=== PATIENT | male | born 1975 | race Two or more races ===

== ENCOUNTER 2016-11-12 17:11 | Observation (INO) | payer OTHER ==
[~2016-11-12] VITALS: Ht 165.1 cm; Wt 65.3 kg
[2016-11-12 17:41] VITALS: BP 145/95
[2016-11-12] MEDS ORDERED: ALBUTEROL2.5 MG/3 M INH (17:57)
[2016-11-12] MEDS ORDERED: MULTI-DELYN237 ML GT (17:57)
[2016-11-12] MEDS ORDERED: VITAMIN C500 M1 ORAL (17:57)
[2016-11-12] MEDS ORDERED: ARTIFICIAL TEAR15 ML BOTH EYES (17:57)
[2016-11-12] MEDS ORDERED: HYDROCODON-ACE1 EA15 ORAL (17:57)
[2016-11-12] MEDS ORDERED: ACETAMINOP160 MG/5 M ORAL (17:57)
[2016-11-12] MEDS ORDERED: IPRATROPIU0.2 MG/1 M HHN (17:57)
[2016-11-12] MEDS ORDERED: LORAZEPAM2 MG ORAL (17:57)
[2016-11-12] MEDS ORDERED: ZINC SULFATE220 M1 GT (17:57)
[2016-11-12] MEDS ORDERED: ANASEPT TP (17:57)
[2016-11-12] MEDS ORDERED: SEROQUEL100 MG ORAL (17:57)
[2016-11-12] MEDS ORDERED: OXYBUTYNIN CHLOR5 M1 ORAL (17:57)
[2016-11-12] MEDS ORDERED: CYMBALTA60 MG ORAL (17:57)
[2016-11-12] MEDS ORDERED: GABAPENTIN300 MG GT (17:57)
[2016-11-12] MEDS ORDERED: FAMOTIDINE20 MG GT (17:57)
[2016-11-12] MEDS ORDERED: MILK OF MA400 MG/51 ORAL (17:57)
[2016-11-12 18:01] LABS: APPEARANCE,URINE SLIGHTLY CLOUDY; KETONES,URINE 2+ (NEGATIVE); LEUKOCYTE ESTERASE ,URINE 3+ (NEGATIVE); MEAN CORPUSCULAR HEMOGLOBIN 29.3 PG (27.0-31.0); MEAN CORPUSCULAR HGB CONC 33.1 G/DL (32.0-36.0); MEAN CORPUSCULAR VOLUME 89 FL (80-99); MEAN PLATELET VOLUME 5.4 FL (6.5-10.1); NITRITE,URINE POSITIVE (NEGATIVE); PH,URINE 6 (4.5-8.0); PLATELET COUNT 220 K/UL (150-450); PROTEIN,URINE 4+ (NEGATIVE); RED BLOOD COUNT 2.41 M/UL (4.70-6.10); RED CELL DISTRIBUTION WIDTH 14.2 % (11.6-14.8); UROBILINOGEN,URINE 1 MG/DL (0.0-1.0); WHITE BLOOD COUNT 10.9 K/UL (4.8-10.8)
[2016-11-12 18:06] LABS: INR 1.1 (0.9-1.1); PROTHROMBIN TIME 11.4 SEC (9.30-11.50)
[2016-11-12 18:11] LABS: ALBUMIN/GLOBULIN RATIO 0.4 (1.0-2.7); CALCIUM 7.4 mg/dL (8.6-10.2); CREATININE 1.5 mg/dL (0.7-1.2); GLOMERULAR FILTRATION RATE 51.1 mL/min (>60); POTASSIUM 4.2 mEQ/L (3.4-4.9); TOTAL PROTEIN 6.7 g/dL (6.6-8.7)
[2016-11-12 18:16] LABS: AMORPHOUS SEDIMENT,UR FEW /LPF; BACTERIA,URINE MANY /HPF; RBC,URINE 30-40 /HPF (0 - 0); WBC,URINE 20-30 /HPF (0 - 0); YEAST,URINE FEW /HPF
--- NOTE | 2016-11-12 18:27 | Emergency Room Report ---
History of Present Illness General Chief Complaint: General Complaint Source: Patient, EMS Present Illness HPI Patient is a 41-year-old male [facility]. The patient had prior history of the tracheostomy dependence. Patient had been having difficulty with oral feeding. Patient had gradual onset of symptoms. He reports having some abdominal pain as well as bilateral shoulder pain. The patient stated that he had prior history of abdominal surgeries and previous G-tube placement. The patient was noted to have a colostomy present. Allergies: Coded Allergies: AMOXICILLIN (Verified Allergy, Unknown, 11/12/16) BACLOFEN (Verified Allergy, Unknown, 11/12/16) Patient History Past Medical History: see triage record Reviewed Nursing Documentation: PMH: Agreed, PSxH: Agreed Nursing Documentation-PMH Past Medical History: No History, Except For Hx Asthma: No - TRACH Hx Gastrointestinal Problems: Yes - COLOSTOMY Review of Systems All Other Systems: limited - by poor historian Physical Exam Vital Signs Date Time Temp Pulse Resp B/P Pulse Ox O2 Delivery O2 Flow Rate FiO2 11/12/16 17:00 98.4 113 22 162/96 94 Room Air 11/12/16 17:41 4.0 Sp02 EP Interpretation: reviewed, normal General Appearance: normal inspection, well appearing, no apparent distress, alert, GCS 15 Head: atraumatic ENT: normal ENT inspection, hearing grossly normal, normal voice Neck: normal inspection, full range of motion, supple, no bony tend Respiratory: normal inspection, normal breath sounds, no retraction, no wheezing Cardiovascular #1: regular rate, rhythm, no edema Gastrointestinal: normal inspection, normal bowel sounds, non tender, soft, no guarding, no hernia Genitourinary: no CVA tenderness Musculoskeletal: normal inspection, back normal, normal range of motion Neurologic: normal inspection, alert, oriented x3, responsive, postal service clerk III-XII nml as tested, speech normal Psychiatric: normal inspection, judgement/insight normal, mood/affect normal Skin: normal inspection, normal color, no rash Medical Decision Making Diagnostic Impression: Primary Impression: Abdominal pain Additional Impressions: Urinary tract infection Anemia Failure to thrive ER Course Patient presented for generalized weakness. Differential diagnosis included was not limited to anemia, urinary tract infection, electrolyte abnormality, hypothyroidism, myocardial infarction, myasthenia gravis, dehydration, among others. Because of complexity of patient's case laboratory testing and imaging studies were ordered. Laboratory tests showed anemia with hemoglobin of 7.1. the patient was also noted to have some evidence of urinary tract infection. The patient was given IV Pepcid for abdominal pain. The patient was started on IV antibiotics to urinary tract infection.I discussed the patient with O physician's who did not feel the patient was stable for transfer. The patient was noted to have capitated physician from [facility] group Dr. Oneal. Labs Test 11/12/16 17:37 White Blood Count 10.9 K/UL (4.8-10.8) Red Blood Count 2.41 M/UL (4.70-6.10) Hemoglobin 7.1 G/DL (14.2-18.0) Hematocrit 21.3 % (42.0-52.0) Mean Corpuscular Volume 89 FL (80-99) Mean Corpuscular Hemoglobin 29.3 PG (27.0-31.0) Mean Corpuscular Hemoglobin Concent 33.1 G/DL (32.0-36.0) Red Cell Distribution Width 14.2 % (11.6-14.8) Platelet Count 220 K/UL (150-450) Mean Platelet Volume 5.4 FL (6.5-10.1) Neutrophils (%) (Auto) % (45.0-75.0) Lymphocytes (%) (Auto) % (20.0-45.0) Monocytes (%) (Auto) % (1.0-10.0) Eosinophils (%) (Auto) % (0.0-3.0) Basophils (%) (Auto) % (0.0-2.0) Prothrombin Time 11.4 SEC (9.30-11.50) Prothromb Time International Ratio 1.1 (0.9-1.1) Activated Partial Thromboplast Time 31 SEC (23-33) Urine Color Brown Urine Appearance Slightly cloudy Urine pH 6 (4.5-8.0) Urine Specific [place] 1.010 (1.005-1.035) Urine Protein 4+ (NEGATIVE) Urine Glucose (UA) Negative (NEGATIVE) Urine Ketones 2+ (NEGATIVE) Urine Occult Blood 5+ (NEGATIVE) Urine Nitrite Positive (NEGATIVE) Urine Bilirubin Negative (NEGATIVE) Urine Urobilinogen 1 MG/DL (0.0-1.0) Urine Leukocyte Esterase 3+ (NEGATIVE) Urine RBC 30-40 /HPF (0 - 0) Urine WBC 20-30 /HPF (0 - 0) Urine Squamous Epithelial Cells None /LPF (NONE/OCC) Urine Amorphous Sediment Few /LPF (NONE) Urine Bacteria Many /HPF (NONE) Urine Yeast Few /HPF (NONE) Sodium Level 145 mEQ/L (135-145) Potassium Level 4.2 mEQ/L (3.4-4.9) Chloride Level 107 mEQ/L (98-107) Carbon Dioxide Level 26 mEQ/L (20-30) Anion Gap 12 (5-15) Blood Urea Nitrogen 22 mg/dL (7-23) Creatinine 1.5 mg/dL (0.7-1.2) Estimat Glomerular Filtration Rate 51.1 mL/min (>60) Glucose Level 95 mg/dL (74-106) Calcium Level 7.4 mg/dL (8.6-10.2) Total Bilirubin 0.3 mg/dL (0.0-1.2) Aspartate Amino Transf (AST/SGOT) 8 U/L (5-40) Alanine Aminotransferase (ALT/SGPT) 5 U/L (3-41) Alkaline Phosphatase 83 U/L (40-129) Total Protein 6.7 g/dL (6.6-8.7) Albumin 2.0 g/dL (3.5-5.2) Globulin 4.7 g/dL Albumin/Globulin Ratio 0.4 (1.0-2.7) EKG Diagnostic Results Rate: tachycardiac - 130 Rhythm: NSR ST Segments: no acute changes Rhythm Strip Diag. Results EP Interpretation: yes Rhythm: NSR, no PVC's, no ectopy Last Vital Signs Date Time Temp Pulse Resp B/P Pulse Ox O2 Delivery O2 Flow Rate FiO2 11/12/16 17:41 98.9 93 30 145/95 100 Trach Collar 4.0 Status: unchanged Disposition: PLACE IN OBSERVATION Condition: Serious Referrals: PO MURPHY (PCP) Lucas Bennett Nov 12, 2016 18:27
[2016-11-12] MEDS ORDERED: Morphine Sulfate 4mg/ml Inj IVP ONE (18:30)
[2016-11-12] MEDS ORDERED: Famotidine 20 MG/ 2ML VIAL IVP ONE (18:30)
[2016-11-12 18:47] LABS: ANISOCYTOSIS 1+; BAND NEUTROPHILS % (MANUAL) 1 % (0-8); EOSINOPHILS % (MANUAL) 2 % (0-3); HYPOCHROMASIA 1+; LYMPHOCYTES % (MANUAL) 13 % (20-45); NEUTROPHILS % (MANUAL) 76 % (45-75); TOTAL CELLS COUNTED 100
[2016-11-12 18:48] LABS: BASOPHILS % (MANUAL) 0 % (0-2); PLATELET ESTIMATE ADEQUATE; PLATELET MORPHOLOGY NORMAL
[2016-11-12 19:00] VITALS: BP 124/85
[2016-11-12 21:00] VITALS: BP 147/98
[2016-11-12 23:00] VITALS: BP 153/102
[2016-11-13] MEDS ORDERED: Morphine Sulfate 4mg/ml Inj IM ONE (00:30)
[2016-11-13 00:45] VITALS: BP 137/95
[2016-11-13] MEDS ORDERED: Albuterol 90mcg Inhaler 8gm INH PRN (00:45)
[2016-11-13] MEDS ORDERED: Morphine Sulfate 4mg/ml Inj IVP ONE (00:45)
[2016-11-13] MEDS ORDERED: LORazepam 1mg tab ORAL PRN (00:45)
[2016-11-13 03:30] VITALS: BP 98/69
[2016-11-13] MEDS ORDERED: Morphine Sulfate 2mg/ml Inj IVP PRN (04:30)
--- NOTE | 2016-11-13 04:33 | Wound Care Consultation ---
Wound Assessment Wound Assessment #1: Wound Number: #1 Wound Present on Admission: Yes New Wound: No Status Change of Wound: No Wound Location Body Site Modif: right Wound Location Body Site: trochanter Wound Type: pressure ulcer Justin Test: Does not Justin Pressure Ulcer Stage: III Wound Thickness: Full Thickness Wound Length: 3.0 Wound Width: 2.5 Wound Depth: 0.2 Percent of Wound Bolt/Red: 100 Wound Drainage Description: Serosanguineous Wound Drainage Amount: Moderate Wound Drainage Odor: None/Absent Tissue Surrounding Wound: Indurated Wound General Appearance: Reddened, Draining Wound Assessment #2: Wound Number: #2 Wound Present on Admission: Yes New Wound: No Status Change of Wound: No Wound Location Body Site Modif: mid Wound Location Body Site: sacral Wound Type: pressure ulcer Justin Test: Does not Justin Pressure Ulcer Stage: IV/unstageable Wound Thickness: Full Thickness Wound Length: 8.0 Wound Width: 10.0 Wound Depth: utd Percent of Wound Bolt/Red: 50 Percent of Wound Bed Yellow/Wh: 30 Percent of Wound Purple/Maroon: 20 Wound Drainage Description: Serosanguineous Wound Drainage Amount: Moderate Wound Drainage Odor: None/Absent Tissue Surrounding Wound: Macerated Wound General Appearance: Reddened, Draining, Necrotic Wound Assessment #3: Wound Number: #3 Wound Present on Admission: Yes New Wound: No Status Change of Wound: No Wound Location Body Site Modif: left Wound Location Body Site: ischial tuberosity Wound Type: pressure ulcer Justin Test: Does not Justin Pressure Ulcer Stage: IV/unstageable Wound Thickness: Full Thickness Wound Length: 7.5 Wound Width: 5.5 Wound Depth: utd Percent of Wound Bolt/Red: 60 Percent of Wound Bed Yellow/Wh: 40 Wound Drainage Description: Serosanguineous Wound Drainage Amount: Moderate Wound Drainage Odor: None/Absent Tissue Surrounding Wound: Macerated Wound General Appearance: Reddened, Draining, Necrotic Wound Assessment #4: Wound Number: #4 Wound Present on Admission: Yes New Wound: No Status Change of Wound: No Wound Location Body Site Modif: right Wound Location Body Site: ischial tuberosity Wound Type: pressure ulcer Justin Test: Does not Justin Pressure Ulcer Stage: IV/unstageable Wound Thickness: Full Thickness Wound Length: 9.0 Wound Width: 5.5 Wound Depth: utd Percent of Wound Bolt/Red: 60 Percent of Wound Bed Yellow/Wh: 40 Wound Drainage Description: Serosanguineous Wound Drainage Amount: Moderate Wound Drainage Odor: None/Absent Tissue Surrounding Wound: Macerated Wound General Appearance: Reddened, Draining, Necrotic Wound Assessment #5: Wound Number: #5 Wound Present on Admission: Yes New Wound: No Status Change of Wound: No Wound Location Body Site: perineal area Wound Type: erosion Justin Test: Does not Justin Wound Thickness: Partial Thickness Percent of Wound Bolt/Red: 100 Wound Drainage Description: Serosanguineous Wound Drainage Amount: Scant Wound Drainage Odor: None/Absent Tissue Surrounding Wound: Macerated Wound General Appearance: Reddened Wound Assessment #6: Wound Number: #6 Wound Present on Admission: Yes New Wound: No Status Change of Wound: No Wound Location Body Site Modif: right Wound Location Body Site: heel Wound Type: pressure ulcer Justin Test: Does not Justin Pressure Ulcer Stage: I Wound Length: 2.5 Wound Width: 3.0 Percent of Wound Bolt/Red: 100 Wound Drainage Amount: None Wound Drainage Odor: None/Absent Tissue Surrounding Wound: Erythemic Wound General Appearance: Reddened Wound Comment #1 Sacral unstageable pressure ulcer #2 Left ischial tuberosity unstageable pressure ulcer #3 Right ischial tuberosity unstageable pressure ulcer #4 Right heel stage I pressure ulcer #5 Erosion perineal area with partial thickness loss #6 Right trochanter stage III pressure ulcer Recommendation -Sacral area, Right trochanter stage III, left and right ischial tuberosity unstageable pressure ulcers, Cleanse with saline, pat dry,apply Triad to periwound area, apply Therahoney gel to wound bed, apply calcium alginate, cover with 4x4, secure with bordered gauze daily and PRN soiled/dislodged -Erosion on perineal and perianal area, cleanse with saline, pat dry, apply Triad cream, leave area open to air BID and PRN soiled -Right heel stage I pressure ulcer wound care per protocol -Offload both heels -Heel protector on both heels -Low air loss mattress -Optimize nutrition -Keep clean and dry -Turn and reposition -Assess and f/u accordingly for any changes ADILENE SILVA RN Nov 13, 2016 04:33
[2016-11-13] MEDS ORDERED: Albuterol ud Inhalation HHN PRN (06:30)
[2016-11-13] MEDS ORDERED: METOPROLOL TART25 MG ORAL (06:38)
[2016-11-13 07:16] LABS: MEAN CORPUSCULAR HEMOGLOBIN 27.7 PG (27.0-31.0); MEAN CORPUSCULAR VOLUME 89 FL (80-99); MEAN PLATELET VOLUME 5.8 FL (6.5-10.1); PLATELET COUNT 169 K/UL (150-450); RED BLOOD COUNT 2.55 M/UL (4.70-6.10); WHITE BLOOD COUNT 8.9 K/UL (4.8-10.8)
[2016-11-13 07:50] VITALS: BP 120/85
[2016-11-13] MEDS ORDERED: Oxybutynin 5mg tab ORAL SCH (09:00)
[2016-11-13] MEDS ORDERED: Artificial Tears 1.4% Op Soln BOTH EYES SCH (09:00)
[2016-11-13] MEDS ORDERED: DULoxetine 30mg cap ORAL SCH (09:00)
[2016-11-13] MEDS ORDERED: Ascorbic Acid 500mg tab ORAL SCH (09:00)
[2016-11-13] MEDS ORDERED: Zinc Sulfate 220mg cap ORAL SCH (09:00)
[2016-11-13 10:48] LABS: BAND NEUTROPHILS % (MANUAL) 0 % (0-8); BASOPHILS % (MANUAL) 0 % (0-2); EOSINOPHILS % (MANUAL) 4 % (0-3); LYMPHOCYTES % (MANUAL) 9 % (20-45); NEUTROPHILS % (MANUAL) 83 % (45-75); PLATELET ESTIMATE ADEQUATE; PLATELET MORPHOLOGY NORMAL; TOTAL CELLS COUNTED 100
--- NOTE | 2016-11-13 11:16 | History and Physical Report ---
DATE OF ADMISSION: 11/12/2016 HISTORY OF PRESENT ILLNESS: This is a 41-year-old male with a history of C1-C4 quadriplegia, previous pressure ulcerations especially of the sacral region and a tracheostomy, who is a resident of [facility] in [place]. He was sent in because of complaints of poor oral intake. The patient states that he has been nauseous every time he tries to eat. This morning, he was fed eggs and toast. He was able to keep them down, but he states prior today he has been having nausea and he has been throwing up. He has previously had a G-tube, but this has been removed. He was noted to have a colostomy. ALLERGIES: To Amoxil and baclofen. MEDICATIONS: His list of medications include Seroquel, Cymbalta, multivitamins, vitamin C, zinc, Tylenol, albuterol, Vicodin, Neurontin, oxybutynin, and Pepcid. PAST SURGICAL HISTORY: Tracheostomy, colonoscopy, and previous G-tube. The patient also has a suprapubic catheter. REVIEW OF SYSTEMS: The patient denies any headaches, hematemesis, hematochezia, night sweats or weight loss. PHYSICAL EXAMINATION: GENERAL: Reveals a 41-year-old male. HEENT: Notable for bitemporal wasting. He has a tracheostomy in place, otherwise HEENT is unremarkable. CHEST: . ABDOMEN: Soft. EXTREMITIES: There is no edema. The patient has bilateral lower extremity contractures as well as upper extremity contractures as well. VITAL SIGNS: Blood pressure is 160/90, heart rate 110, respirations 20, and he was afebrile. LABORATORY AND DIAGNOSTIC DATA: Lab testing shows hemoglobin 7.1, otherwise normal CBC. Chemistries are notable for creatinine of 1.5. Coag studies are negative. Urinalysis shows WBC, however, he has a catheter in place. Imaging study is not available. IMPRESSION: 1. Anemia. 2. Tachycardia. 3. Hypertension. 4. C1-C4 quadriplegia. 5. Failure to thrive. 6. Poor oral intake. DISCUSSION: We will admit to the hospital for observation only. We will transfuse. At this point in time being a long weekend, I am unable to contact the information clerk [employer] for urgent G-tube placement. Nevertheless, the patient is able to take orally, all the intake is likely suboptimal. Given the fact that this is a long weekend, unable to contact an appropriate information clerk [employer] for G-tube placement. We will discharge back to facility after transfusion and arrange outpatient evaluation or readmission in the near future for G-tube placement. Discussed with the insurance. Carlos Alberto Oneal M.D. DR: JATINDER JOB#: [id number] CC:
--- NOTE | 2016-11-13 11:42 | Diagnostic Imaging Report ---
Indication: Dyspnea Comparison: None A single view chest radiograph was obtained. Findings: There is a right pleural effusion suspected. PICC line and tracheostomy noted. Heart is borderline enlarged. No infiltrate seen. Bones are osteopenic. Cervical fusion hardware partially noted. Impression: Apparent right pleural effusion. PICC line in good position. Tracheostomy Cervical fusion Osteopenia
[2016-11-13 11:43] VITALS: BP 127/87
[2016-11-13] MEDS ORDERED: NS 550ML IV ONE (13:54)
[2016-11-13] MEDS ORDERED: Tubing IV Secondary IV ONE (13:54)
--- NOTE | 2016-11-14 11:18 | Cardiology Report ---
APPROVED REPORT EKG Measurement Heart [id number] Sinus tachycardia RV conduction delay Otherwise normal ECG
[2016-11-15 14:09] LABS: OTHERS PATHOLOGIST COMMENT
== END 2016-11-13 13:55 ==
LOC: EDBD 17:11 → EMR 18:11 → 2E 21:35 → EDBEDREQSVC 21:39 → EDBEDREQ 21:39
DX: D64.9 Anemia, unspecified (principal); R00.0 Tachycardia, unspecified; N39.0 Urinary tract infection, site not specified; R62.7 Adult failure to thrive; R11.0 Nausea; R63.0 Anorexia; I10 Essential (primary) hypertension; G82.50 Quadriplegia, unspecified; Z93.3 Colostomy status; Z88.1 Allergy status to other antibiotic agents; Z88.8 Allergy status to other drugs, medicaments and biological substances
CPT/HCPCS: 36415; 36592; 71010; 80053; 81001; 85007; 85025; 85610; 85730; 86850; 86900; 86901; 86920; 87081; 87086; 87181; 93005; 94760; 96374; 96375; 99285; G0378; J1956; J2270; J2405; J7040; P9016; S0028; 36430

== ENCOUNTER 2016-12-03 10:30 | Inpatient (IN) | payer OTHER ==
[~2016-12-03] VITALS: Ht 167.6 cm; Wt 62.1 kg
[~2016-12-03 10:30] MED LIST: ACETAMINOP160 MG/5 M ORAL; ALBUTEROL2.5 MG/3 M INH; ANASEPT TP; ARTIFICIAL TEAR15 ML BOTH EYES; CYMBALTA60 MG ORAL; FAMOTIDINE20 MG GT; GABAPENTIN300 MG GT; HYDROCODON-ACE1 EA15 ORAL; IPRATROPIU0.2 MG/1 M HHN; LORAZEPAM2 MG ORAL; METOPROLOL TART25 MG ORAL; MILK OF MA400 MG/51 ORAL; MULTI-DELYN237 ML GT; OXYBUTYNIN CHLOR5 M1 ORAL; SEROQUEL100 MG ORAL; VITAMIN C500 M1 ORAL; ZINC SULFATE220 M1 GT
[2016-12-03 10:43] VITALS: BP 113/83
[2016-12-03] MEDS ORDERED: Morphine Sulfate 4mg/ml Inj IVP ONE ×2 (10:45→15:10)
[2016-12-03 11:35] LABS: BASOPHILS % (AUTO) 1.4 % (0.0-2.0); EOSINOPHILS % (AUTO) 1.2 % (0.0-3.0); LYMPHOCYTES % (AUTO) 17.8 % (20.0-45.0); MEAN CORPUSCULAR HEMOGLOBIN 28.8 PG (27.0-31.0); MEAN CORPUSCULAR HGB CONC 33.3 G/DL (32.0-36.0); MEAN CORPUSCULAR VOLUME 86 FL (80-99); MEAN PLATELET VOLUME 5.3 FL (6.5-10.1); MONOCYTES % (AUTO) 12.2 % (1.0-10.0); NEUTROPHILS % (AUTO) 67.3 % (45.0-75.0); PLATELET COUNT 193 K/UL (150-450); RED BLOOD COUNT 2.87 M/UL (4.70-6.10); RED CELL DISTRIBUTION WIDTH 13.3 % (11.6-14.8); WHITE BLOOD COUNT 5.6 K/UL (4.8-10.8)
[2016-12-03 11:37] LABS: APPEARANCE,URINE CLOUDY; KETONES,URINE 4+ (NEGATIVE); LEUKOCYTE ESTERASE ,URINE 2+ (NEGATIVE); NITRITE,URINE NEGATIVE (NEGATIVE); PH,URINE 5 (4.5-8.0); PROTEIN,URINE 3+ (NEGATIVE); UROBILINOGEN,URINE 4 MG/DL (0.0-1.0)
[2016-12-03 11:42] LABS: ALANINE AMINOTRANSFERASE 5 U/L (3-41); ALBUMIN/GLOBULIN RATIO 0.3 (1.0-2.7); ANION GAP 15 (5-15); ASPARTATE AMINO TRANSFERASE 5 U/L (5-40); CARBON DIOXIDE 21 mEQ/L (20-30); CHLORIDE 105 mEQ/L (98-107); CREATININE 1.3 mg/dL (0.7-1.2); GLOMERULAR FILTRATION RATE > 60 mL/min (>60); HEMOLYSIS 2; LIPASE 41 U/L (< 60); SODIUM 141 mEQ/L (135-145); TOTAL PROTEIN 5.9 g/dL (6.6-8.7)
[2016-12-03 11:44] LABS: SQUAMOUS EPITHELIAL CELL,UR OCCASIONAL /LPF (NONE/OCC)
[2016-12-03] MEDS ORDERED: CARAFATE1 G1 ORAL (11:45)
[2016-12-03] MEDS ORDERED: CHLORHEXIDINE FL1 M1 MC (11:45)
[2016-12-03 11:46] LABS: ICTOTEST POSITIVE
[2016-12-03] MEDS ORDERED: CHLORHEXIDINE 0.12% PO (11:46)
[2016-12-03 11:47] LABS: INR 1.2 (0.9-1.1); PROTHROMBIN TIME 12.4 SEC (9.30-11.50)
[2016-12-03] MEDS ORDERED: PANTOPRAZOLE SO40 MG ORAL (11:48)
[2016-12-03] MEDS ORDERED: ZOFRAN4 M3 ORAL (11:48)
[2016-12-03] MEDS ORDERED: PROCHLORPERAZINE5 MG ORAL (11:48)
[2016-12-03] MEDS ORDERED: MEROPENEM1 GM IV (11:49)
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
--- NOTE | 2016-12-03 12:21 | Diagnostic Imaging Report ---
Indication: Abdominal pain Comparison: None Single view of the abdomen obtained BI-RADS is nonspecific. There is a ovoid density projected over the left lower quadrant of abdomen. Not certain of the nature of this density but this may be a skin lesion involving the abdominal wall. Please correlate clinically. The bones are osteopenic. The left hip is dislocated. There is moderate narrowing and osteophyte formation of both hip joints. Impression: Unusual ovoid density projected over left lower quadrant of abdomen. Possible that this is superficial at the level of the skin such as a subcutaneous growth, mass or something overlying the patient.
--- NOTE | 2016-12-03 12:22 | Diagnostic Imaging Report ---
Indication: Chest abdominal pain Comparison: 11/12/69 A single view chest radiograph was obtained. Findings: There is a probable small right pleural effusion. Tracheostomy and PICC line are stable. Bones are diffusely osteopenic. Heart size is borderline enlarged. There is mild atelectasis at the right lung base as well. There is a fracture of the right humeral neck which is probably old. Impression: Mild right basal atelectasis and suspected pleural effusion. No significant change
[2016-12-03 13:55] VITALS: BP 111/71
[2016-12-03 16:29] VITALS: BP 117/70
--- NOTE | 2016-12-03 18:21 | History & Physical ---
History and Physical History & Physicial Patient: PAOLO GARZA [facility] Rec #: [id number] Patient No.: [id number] Date of Service: 12/03/16 DATE OF ADMISSION: 12/03/2016 HISTORY OF PRESENT ILLNESS: This is a 41-year-old male with a history of C1-C4 quadriplegia, previous pressure ulcerations especially of the sacral region and a tracheostomy, who is a resident of [facility] in [place]. He was sent in because of complaints of poor oral intake. The patient states that he has been nauseous every time he tries to eat. He has been having nausea and he has been throwing up. He has previously had a G-tube, but this has been removed. He was noted to have a colostomy. ALLERGIES: To Amoxil and baclofen. MEDICATIONS: His list of medications include Seroquel, Cymbalta, multivitamins, vitamin C, zinc, Tylenol, albuterol, Vicodin, Neurontin, oxybutynin, and Pepcid. PAST SURGICAL HISTORY: Tracheostomy, colonoscopy, and previous G-tube. The patient also has a suprapubic catheter. REVIEW OF SYSTEMS: The patient denies any headaches, hematemesis, hematochezia, night sweats or weight loss. PHYSICAL EXAMINATION: GENERAL: Reveals a 41-year-old male. HEENT: Notable for bitemporal wasting. He has a tracheostomy in place, otherwise HEENT is unremarkable. CHEST: CTA ABDOMEN: Soft. EXTREMITIES: There is no edema. The patient has bilateral lower extremity contractures as well as upper extremity contractures as well. VITAL SIGNS: Blood pressure is 140/90, heart rate 102, respirations 20, and he was afebrile. LABORATORY AND DIAGNOSTIC DATA: Lab testing shows normal CBC. Chemistries are notable for creatinine of 1.5. Coag studies are negative. Imaging study is not available. IMPRESSION: 1. Poor oral intake 2. Tachycardia. 3. Hypertension. 4. C1-C4 quadriplegia. 5. Failure to thrive. 6. Chronic pain DISCUSSION: WIll contact the bolter helper for urgent G-tube placement. Continue home medications Discussed with the insurance. Ozzy Overton Omar Syed MD Dec 03, 2016 18:21
[2016-12-03] MEDS: Morphine Sulfate 2mg/ml Inj IVP PRN ×2 (18:50→23:09)
[2016-12-03 20:00] VITALS: BP 140/95
[2016-12-03] MEDS: Sucralfate 1gm tab ORAL SCH (22:11)
[2016-12-03] MEDS: Dyna-Hex 2% Top Sol 8oz TOPIC SCH (22:12)
[2016-12-03] MEDS: Metoprolol 25mg tab ORAL SCH (22:12)
[2016-12-04] VITALS: BP 121/92
[2016-12-04] MEDS: Morphine Sulfate 2mg/ml Inj IVP PRN ×5 (03:50→21:55)
[2016-12-04 04:00] VITALS: BP 124/96
[2016-12-04] MEDS: Sucralfate 1gm tab ORAL SCH ×4 (06:06→21:53)
[2016-12-04 06:54] LABS: MEAN CORPUSCULAR HEMOGLOBIN 28.2 PG (27.0-31.0); MEAN CORPUSCULAR VOLUME 88 FL (80-99); MEAN PLATELET VOLUME 5.8 FL (6.5-10.1); PLATELET COUNT 154 K/UL (150-450); RED BLOOD COUNT 2.77 M/UL (4.70-6.10); RED CELL DISTRIBUTION WIDTH 13.9 % (11.6-14.8); WHITE BLOOD COUNT 4.8 K/UL (4.8-10.8)
[2016-12-04 07:43] LABS: ANION GAP 14 (5-15); CALCIUM 7.2 mg/dL (8.6-10.2); CARBON DIOXIDE 21 mEQ/L (20-30); CHLORIDE 108 mEQ/L (98-107); CREATININE 1.2 mg/dL (0.7-1.2); GLOMERULAR FILTRATION RATE > 60 mL/min (>60); SODIUM 143 mEQ/L (135-145)
--- NOTE | 2016-12-04 07:43 | Pulmonology Progress Note ---
Assessment/Plan Assessment/Plan IMPRESSION: 1. Poor oral intake 2. Tachycardia. 3. Anemia 4. C1-C4 quadriplegia. 5. Failure to thrive. 6. 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 Continue home medications; will transfuse Discussed with the insurance. Subjective Interval Events: Anemic this AM Constitutional: Reports: no symptoms HEENT: Repors: no symptoms Respiratory: Reports: no symptoms Cardiovascular: Reports: no symptoms Allergies: Coded Allergies: AMOXICILLIN (Verified Allergy, Unknown, 12/03/16) BACLOFEN (Verified Allergy, Unknown, 12/03/16) Objective Last 24 Hour Vital Signs Date Time Temp Pulse Resp B/P Pulse Ox O2 Delivery O2 Flow Rate FiO2 12/04/16 06:30 99 Trach Collar 8.0 35 12/04/16 06:30 Trach Collar 8.0 35 12/04/16 04:00 97.2 87 20 124/96 100 Room Air 12/04/16 01:01 Trach Collar 8.0 35 12/04/16 00:00 96.9 85 19 121/92 100 Room Air 12/03/16 22:12 87 140/95 12/03/16 20:00 96.9 87 17 140/95 99 Room Air 12/03/16 19:48 Trach Collar 8.0 35 12/03/16 16:29 97.2 90 15 117/70 92 12/03/16 16:08 Trach Collar 8.0 35 12/03/16 16:07 99 Trach Collar 8.0 35 12/03/16 15:16 98.1 89 22 111/71 99 Room Air 12/03/16 13:55 98.1 89 22 111/71 99 Room Air 12/03/16 11:30 98.1 12/03/16 10:43 98.1 93 27 113/83 98 Room Air 12/03/16 10:20 98.1 93 14 155/105 99 Room Air Intake and Output 12/03/16 12/04/16 19:00 07:00 Intake Total 300 ml Output Total 300 ml 400 ml Balance 0 ml -400 ml Intake IV Total 300 ml Output Urine Total 300 ml 400 ml # Voids 1 # Bowel Movements 1 1 General Appearance: no acute distress HEENT: normocephalic Respiratory/Chest: chest wall non-tender, lungs clear Cardiovascular: normal peripheral pulses, normal rate Laboratory Tests 12/03/16 10:56: White Blood Count 5.6, Red Blood Count 2.87L, Hemoglobin 8.3L, Hematocrit 24.8L , Mean Corpuscular Volume 86, Mean Corpuscular Hemoglobin 28.8, Mean Corpuscular Hemoglobin Concent 33.3, Red Cell Distribution Width 13.3, Platelet Count 193, Mean Platelet Volume 5.3L, Neutrophils (%) (Auto) 67.3, Lymphocytes ( %) (Auto) 17.8L, Monocytes (%) (Auto) 12.2H, Eosinophils (%) (Auto) 1.2, Basophils (%) (Auto) 1.4, Prothrombin Time 12.4H, Prothromb Time International Ratio 1.2H, Activated Partial Thromboplast Time 36H, Sodium Level 141, Potassium Level 3.0L, Chloride Level 105, Carbon Dioxide Level 21, Anion Gap 15 , Blood Urea Nitrogen 26H, Creatinine 1.3H, Estimat Glomerular Filtration Rate > 60, Glucose Level 73L, Calcium Level 7.0L, Total Bilirubin 0.3, Aspartate Amino Transf (AST/SGOT) 5, Alanine Aminotransferase (ALT/SGPT) 5, Alkaline Phosphatase 85, Total Protein 5.9L, Albumin 1.6L, Globulin 4.3, Albumin/ Globulin Ratio 0.3L, Lipase 41 12/03/16 11:11: Urine Color Pale yellow, Urine Appearance Cloudy, Urine pH 5, Urine Specific [place] 1.015, Urine Protein 3+H, Urine Glucose (UA) Negative, Urine Ketones 4+H , Urine Occult Blood 5+H, Urine Nitrite Negative, Urine Bilirubin 1+H, Urine Ictotest Positive, Urine Urobilinogen 4H, Urine Leukocyte Esterase 2+H, Urine RBC 10-15H, Urine WBC 2-4, Urine Squamous Epithelial Cells Occasional, Urine Bacteria None 12/04/16 06:05: White Blood Count 4.8, Red Blood Count 2.77L, Hemoglobin 7.8L, Hematocrit 24.3L , Mean Corpuscular Volume 88, Mean Corpuscular Hemoglobin 28.2, Mean Corpuscular Hemoglobin Concent 32.0, Red Cell Distribution Width 13.9, Platelet Count 154, Mean Platelet Volume 5.8L, Neutrophils (%) (Auto) , Lymphocytes (%) ( Auto) , Monocytes (%) (Auto) , Eosinophils (%) (Auto) , Basophils (%) (Auto) , Sodium Level [Pending], Potassium Level [Pending], Chloride Level [Pending], Carbon Dioxide Level [Pending], Blood Urea Nitrogen [Pending], Creatinine [ Pending], Estimat Glomerular Filtration Rate [Pending], Glucose Level [Pending] , Calcium Level [Pending], Neutrophils % (Manual) [Pending], Lymphocytes % ( Manual) [Pending], Platelet Estimate [Pending], Platelet Morphology [Pending], Reticulocyte Count [Pending], Iron Level [Pending], Unsaturated Iron Binding [ Pending], Ferritin [Pending], Carcinoembryonic Antigen [Pending], Vitamin B12 Level [Pending], Folate [Pending], Thyroid Stimulating Hormone (TSH) [Pending], Free Thyroxine [Pending] Current Medications Medications (Trade) Dose Ordered Sig/Yazmin Route PRN Reason Start Time Stop Time Status Last Admin Dose Admin Chlorhexidine Gluconate (Melinda-Hex 2%) 1 applic QHS TOPIC 12/03/16 21:00 01/02/17 20:59 12/03/16 22:12 Metoprolol Tartrate (Lopressor) 25 mg Q12HR ORAL 12/03/16 21:00 01/02/17 20:59 12/03/16 22:12 Morphine Sulfate (Morphine Sulfate) 2 mg Q4H PRN IVP For Pain 4-10 12/03/16 18:30 12/10/16 18:29 12/04/16 03:50 Ondansetron HCl (Zofran) 4 mg Q6H PRN IVP Nausea & Vomiting 12/03/16 16:30 01/02/17 16:29 12/04/16 03:50 Pantoprazole (Protonix) 40 mg EVERY 12 HOURS ORAL 12/03/16 21:00 01/02/17 20:59 12/03/16 22:12 Prochlorperazine (Compazine) 10 mg Q6H PRN IVP Nausea & Vomiting 12/03/16 16:30 01/02/17 16:29 Sodium Chloride (Sodium Chloride 1000ml bag) 1,000 ml @ 75 mls/hr [id number] IV 12/03/16 17:00 01/02/17 16:59 12/04/16 06:07 Sucralfate (Carafate) 1 gm AC+HS ORAL 12/03/16 21:00 01/02/17 20:59 12/04/16 06:06 Carlos Alberto Oneal MD Dec 04, 2016 07:43
[2016-12-04 07:55] LABS: FERRITIN 1437 ng/mL (10-230)
[2016-12-04 08:00] VITALS: BP 135/82
--- NOTE | 2016-12-04 08:00 | Consultation ---
DATE OF CONSULTATION: 12/04/2016 REASON FOR CONSULTATION: ____ failure to thrive. HISTORY OF PRESENT ILLNESS: This is a 41-year-old male with multiple medical problems is unfortunate male with C1-C4 quadriplegia. The patient has chronic stasis, not moving. He has a tracheostomy. He has a colostomy. He has a history of severe decubital ulcerations. Apparently, he had a history of G-tube in the past, but it was removed now and needed to be admitted and resumed again given the patient is not eating well and that was the main reason for the patient admission. PAST MEDICAL HISTORY: 1. C1-C4 quadriplegia. 2. Dysphagia requiring G-tube in the past. 3. Decubital ulcerations at the sacral area. 4. Anemia. 5. History of respiratory failure requiring tracheostomy in the past. PAST SURGICAL HISTORY: Tracheostomy and colostomy. ALLERGIES: Allergy to amoxicillin and baclofen. MEDICATIONS: Please see medication reconciliation list. SOCIAL HISTORY: Currently lives in a skilled nursing. No recent history of tobacco, alcohol, or illicit drug abuse. FAMILY HISTORY: Noncontributory. REVIEW OF SYSTEMS: Limited. PHYSICAL EXAMINATION: VITAL SIGNS: Temperature is 97.2 degrees, pulse 87, respirations 20, and blood pressure 124/96. HEENT: Normocephalic and atraumatic. Mild pale conjunctivae. NECK: Supple. Trach in place. LUNGS: Decreased breath sounds at bilateral bases, right more than left. CARDIOVASCULAR: Regular rhythm. Plus S1 and S2. ABDOMEN: Soft and nontender. There is a colostomy bag in place. No rebound. No guarding. No peritoneal sign. EXTREMITIES: No cyanosis. No clubbing. There is evidence of some decubital ulcerations. LABORATORY AND DIAGNOSTIC DATA: Sodium is 141, potassium 3, BUN 23, and creatinine 1.3. Albumin is very low at 1.6. White count is 5.6, hemoglobin 8.2, hematocrit 24, and platelet count is 193,000. Imaging studies, the patient had a chest x-ray which showed mild right basilar atelectasis and soft suspected pleural effusion. ASSESSMENT AND PLAN: 1. Normocytic anemia. 2. Failure to thrive with prior history of gastrostomy tube. 3. History of colostomy. 4. Paraplegia. 5. History of decubital ulcerations. 6. Questionable right pleural effusion. 7. Hypoalbuminemia. PLAN: The patient is to be hydrated. Laboratories to be monitored. Anemia workup. Plan to do a PEG on Tuesday. I want to thank, Dr. Oneal, for this kind referral. Pascual Escamilla M.D. DR: PHIL JOB#: [id number] CC: Carlos Alberto Oneal M.D.; Fax#: [phone]
[2016-12-04 08:12] LABS: HEMOLYSIS 1; IRON 52 ug/dL (59-158); TOTAL IRON BINDING CAPACITY 68 ug/dL (250-400)
[2016-12-04 08:48] LABS: BAND NEUTROPHILS % (MANUAL) 0 % (0-8); BASOPHILS % (MANUAL) 0 % (0-2); EOSINOPHILS % (MANUAL) 2 % (0-3); LYMPHOCYTES % (MANUAL) 10 % (20-45); NEUTROPHILS % (MANUAL) 81 % (45-75); PLATELET ESTIMATE ADEQUATE; TOTAL CELLS COUNTED 100
[2016-12-04 08:49] LABS: PLATELET MORPHOLOGY NORMAL
[2016-12-04 08:52] LABS: HYPOCHROMASIA 1+
[2016-12-04] MEDS ORDERED: Tubing IV Secondary IV ONE (10:30)
[2016-12-04] MEDS: Metoprolol 25mg tab ORAL SCH ×2 (10:54→21:54)
[2016-12-04 12:00] VITALS: BP 131/74
[2016-12-04 12:28] LABS: RETICULOCYTE COUNT 0.3 % (0.0-2.0)
[2016-12-04 16:01] VITALS: BP 108/68
[2016-12-04] MEDS ORDERED: Tubing Blood Filter IV ONE (17:02)
[2016-12-04] MEDS ORDERED: NS 550ML IV ONE (17:02)
[2016-12-04 20:00] VITALS: BP 108/72
[2016-12-04] MEDS: Dyna-Hex 2% Top Sol 8oz TOPIC SCH (21:53)
[2016-12-05] VITALS: BP 100/69
[2016-12-05] MEDS: Morphine Sulfate 2mg/ml Inj IVP PRN ×5 (03:58→23:15)
[2016-12-05 04:00] VITALS: BP 122/72
[2016-12-05] MEDS: Sucralfate 1gm tab ORAL SCH ×4 (06:43→21:51)
[2016-12-05 07:35] LABS: MEAN CORPUSCULAR HEMOGLOBIN 28.2 PG (27.0-31.0); MEAN CORPUSCULAR HGB CONC 31.8 G/DL (32.0-36.0); MEAN CORPUSCULAR VOLUME 89 FL (80-99); MEAN PLATELET VOLUME 5.5 FL (6.5-10.1); PLATELET COUNT 136 K/UL (150-450); RED BLOOD COUNT 3.09 M/UL (4.70-6.10); RED CELL DISTRIBUTION WIDTH 13.6 % (11.6-14.8); WHITE BLOOD COUNT 3.4 K/UL (4.8-10.8)
[2016-12-05 08:01] LABS: ANION GAP 13 (5-15); CARBON DIOXIDE 17 mEQ/L (20-30); CHLORIDE 113 mEQ/L (98-107); CREATININE 0.9 mg/dL (0.7-1.2); GLOMERULAR FILTRATION RATE > 60 mL/min (>60); HEMOLYSIS 6; POTASSIUM 3.5 mEQ/L (3.4-4.9); SODIUM 143 mEQ/L (135-145)
[2016-12-05 08:05] LABS: BAND NEUTROPHILS % (MANUAL) 0 % (0-8); BASOPHILS % (MANUAL) 0 % (0-2); EOSINOPHILS % (MANUAL) 3 % (0-3); HYPOCHROMASIA 1+; LYMPHOCYTES % (MANUAL) 29 % (20-45); NEUTROPHILS % (MANUAL) 59 % (45-75); PLATELET ESTIMATE ADEQUATE; PLATELET MORPHOLOGY NORMAL; TOTAL CELLS COUNTED 100
[2016-12-05 08:16] LABS: CALCIUM 5.9 mg/dL (8.6-10.2)
[2016-12-05 08:19] VITALS: BP 140/92
--- NOTE | 2016-12-05 08:54 | General Progress Note ---
Assessment/Plan Problem List: (1) Abdominal pain ICD Codes: R10.9 - Unspecified abdominal pain SNOMED: 73600000, [id number] Qualifiers: Qualified Codes: R10.84 - Generalized abdominal pain (2) Pleural effusion ICD Codes: J90 - Pleural effusion, not elsewhere classified SNOMED: 90000895 (3) Anemia ICD Codes: D64.9 - Anemia, unspecified SNOMED: 861805441 Qualifiers: Qualified Codes: D64.9 - Anemia, unspecified (4) Paraplegia ICD Codes: G82.20 - Paraplegia, unspecified SNOMED: 39413180 Assessment/Plan plan PEG in AM fu labs Subjective ROS Limited/Unobtainable: Yes Allergies: Coded Allergies: AMOXICILLIN (Verified Allergy, Unknown, 12/03/16) BACLOFEN (Verified Allergy, Unknown, 12/03/16) Subjective no event Objective Last 24 Hour Vital Signs Date Time Temp Pulse Resp B/P Pulse Ox O2 Delivery O2 Flow Rate FiO2 12/05/16 08:19 98.4 85 20 140/92 100 Trach Collar 10.0 35 12/05/16 07:40 99 Trach Collar 8.0 35 12/05/16 07:40 Trach Collar 8.0 35 12/05/16 04:00 97.2 78 20 122/72 98 Room Air 12/05/16 01:30 Trach Collar 8.0 35 12/05/16 00:00 97.3 73 20 100/69 98 Trach Collar 2.0 12/04/16 21:54 68 112/76 12/04/16 20:00 98.6 66 20 108/72 100 Trach Collar 2.0 12/04/16 19:17 Trach Collar 8.0 35 12/04/16 19:16 99 Trach Collar 8.0 35 12/04/16 16:01 97.6 69 15 108/68 100 Trach Collar 12/04/16 12:33 Trach Collar 8.0 35 12/04/16 12:00 97.8 80 18 131/74 98 Trach Collar 9.0 12/04/16 10:54 78 135/82 Intake and Output 12/04/16 12/05/16 19:00 07:00 Intake Total 1000 ml 375 ml Output Total 600 ml 400 ml Balance 400 ml -25 ml Intake Oral 100 ml IV Total 900 ml 375 ml Output Urine Total 600 ml 400 ml # Bowel Movements 1 1 Laboratory Tests 12/05/16 07:15: White Blood Count 3.4L, Red Blood Count 3.09L, Hemoglobin 8.7L, Hematocrit 27.4L , Mean Corpuscular Volume 89, Mean Corpuscular Hemoglobin 28.2, Mean Corpuscular Hemoglobin Concent 31.8L, Red Cell Distribution Width 13.6, Platelet Count 136L, Mean Platelet Volume 5.5L, Neutrophils (%) (Auto) , Lymphocytes (%) (Auto) , Monocytes (%) (Auto) , Eosinophils (%) (Auto) , Basophils (%) (Auto) , Differential Total Cells Counted 100, Neutrophils % ( Manual) 59, Lymphocytes % (Manual) 29, Monocytes % (Manual) 9, Eosinophils % ( Manual) 3, Basophils % (Manual) 0, Band Neutrophils 0, Platelet Estimate Adequate, Platelet Morphology Normal, Hypochromasia 1+, Sodium Level 143, Potassium Level 3.5, Chloride Level 113H, Carbon Dioxide Level 17L, Anion Gap 13 , Blood Urea Nitrogen 24H, Creatinine 0.9, Estimat Glomerular Filtration Rate > 60, Glucose Level 54L, Calcium Level 5.9*L Height (Feet): 5 Height (Inches): 6.00 Weight (Pounds): 137 General Appearance: no apparent distress EENT: normal ENT inspection Neck: supple Cardiovascular: normal peripheral pulses Respiratory/Chest: decreased breath sounds Abdomen: normal bowel sounds, non tender, soft Extremities: non-tender SILVIA BLAKE Dec 05, 2016 08:54
[2016-12-05] MEDS: Metoprolol 25mg tab ORAL SCH ×2 (09:03→21:00)
--- NOTE | 2016-12-05 10:45 | Pulmonology Progress Note ---
Assessment/Plan Assessment/Plan IMPRESSION: 1. Poor oral intake 2. Tachycardia. 3. Anemia 4. C1-C4 quadriplegia. 5. Failure to thrive. 6. 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 Continue home medications; s/p prbc Discussed with the insurance. Subjective Interval Events: None; Hgb now 8.7; Calcium low Constitutional: Reports: no symptoms HEENT: Repors: no symptoms Respiratory: Reports: no symptoms Cardiovascular: Reports: no symptoms Allergies: Coded Allergies: AMOXICILLIN (Verified Allergy, Unknown, 12/03/16) BACLOFEN (Verified Allergy, Unknown, 12/03/16) Objective Last 24 Hour Vital Signs Date Time Temp Pulse Resp B/P Pulse Ox O2 Delivery O2 Flow Rate FiO2 12/05/16 09:03 85 140/92 12/05/16 08:19 98.4 85 20 140/92 100 Trach Collar 10.0 35 12/05/16 07:40 99 Trach Collar 8.0 35 12/05/16 07:40 Trach Collar 8.0 35 12/05/16 04:00 97.2 78 20 122/72 98 Room Air 12/05/16 01:30 Trach Collar 8.0 35 12/05/16 00:00 97.3 73 20 100/69 98 Trach Collar 2.0 12/04/16 21:54 68 112/76 12/04/16 20:00 98.6 66 20 108/72 100 Trach Collar 2.0 12/04/16 19:17 Trach Collar 8.0 35 12/04/16 19:16 99 Trach Collar 8.0 35 12/04/16 16:01 97.6 69 15 108/68 100 Trach Collar 12/04/16 12:33 Trach Collar 8.0 35 12/04/16 12:00 97.8 80 18 131/74 98 Trach Collar 9.0 12/04/16 10:54 78 135/82 Intake and Output 12/04/16 12/05/16 19:00 07:00 Intake Total 1000 ml 375 ml Output Total 600 ml 400 ml Balance 400 ml -25 ml Intake Oral 100 ml IV Total 900 ml 375 ml Output Urine Total 600 ml 400 ml # Bowel Movements 1 1 General Appearance: no acute distress HEENT: normocephalic Respiratory/Chest: chest wall non-tender, lungs clear Cardiovascular: normal peripheral pulses, normal rate Abdomen: normal bowel sounds, soft, non tender Microbiology Date/Time Source Procedure Growth Status 12/03/16 19:40 Wound Gram Stain Pending Resulted 12/03/16 19:40 Wound Culture - Preliminary Gram Negative Corby Resulted 12/03/16 15:00 Nasal Nares MRSA Culture - Final NO METHICILLIN RESISTANT STAPH AUREUS... Complete Laboratory Tests 12/05/16 07:15: White Blood Count 3.4L, Red Blood Count 3.09L, Hemoglobin 8.7L, Hematocrit 27.4L , Mean Corpuscular Volume 89, Mean Corpuscular Hemoglobin 28.2, Mean Corpuscular Hemoglobin Concent 31.8L, Red Cell Distribution Width 13.6, Platelet Count 136L, Mean Platelet Volume 5.5L, Neutrophils (%) (Auto) , Lymphocytes (%) (Auto) , Monocytes (%) (Auto) , Eosinophils (%) (Auto) , Basophils (%) (Auto) , Differential Total Cells Counted 100, Neutrophils % ( Manual) 59, Lymphocytes % (Manual) 29, Monocytes % (Manual) 9, Eosinophils % ( Manual) 3, Basophils % (Manual) 0, Band Neutrophils 0, Platelet Estimate Adequate, Platelet Morphology Normal, Hypochromasia 1+, Sodium Level 143, Potassium Level 3.5, Chloride Level 113H, Carbon Dioxide Level 17L, Anion Gap 13 , Blood Urea Nitrogen 24H, Creatinine 0.9, Estimat Glomerular Filtration Rate > 60, Glucose Level 54L, Calcium Level 5.9*L Current Medications Medications (Trade) Dose Ordered Sig/Yazmin Route PRN Reason Start Time Stop Time Status Last Admin Dose Admin Acetaminophen (Tylenol) 650 mg ONCE PRN ORAL 30 MIN PRIOR TO TRANSFUSION 12/04/16 15:00 12/05/16 23:59 12/04/16 15:39 Chlorhexidine Gluconate (Melinda-Hex 2%) 1 applic QHS TOPIC 12/03/16 21:00 01/02/17 20:59 12/04/16 21:53 Diphenhydramine HCl (Benadryl) 50 mg ONCE PRN ORAL 30 MIN PRIOR TO TRANSFUSION 12/04/16 15:00 12/05/16 14:59 12/04/16 15:40 Metoprolol Tartrate (Lopressor) 25 mg Q12HR ORAL 12/03/16 21:00 01/02/17 20:59 12/05/16 09:03 Morphine Sulfate (Morphine Sulfate) 2 mg Q4H PRN IVP For Pain 4-10 12/03/16 18:30 12/10/16 18:29 12/05/16 09:03 Ondansetron HCl (Zofran) 4 mg Q6H PRN IVP Nausea & Vomiting 12/03/16 16:30 01/02/17 16:29 12/04/16 23:09 Pantoprazole (Protonix) 40 mg EVERY 12 HOURS ORAL 12/03/16 21:00 01/02/17 20:59 12/05/16 09:03 Prochlorperazine (Compazine) 10 mg Q6H PRN IVP Nausea & Vomiting 12/03/16 16:30 01/02/17 16:29 12/04/16 15:39 Sodium Chloride (Sodium Chloride 1000ml bag) 1,000 ml @ 75 mls/hr [id number] IV 12/03/16 17:00 01/02/17 16:59 12/05/16 02:53 Sucralfate (Carafate) 1 gm AC+HS ORAL 12/03/16 21:00 01/02/17 20:59 12/05/16 06:43 Carlos Alberto Oneal MD Dec 05, 2016 10:45
[2016-12-05 11:52] VITALS: BP 136/89
[2016-12-05 16:00] VITALS: BP 99/65
[2016-12-05 20:00] VITALS: BP 110/80
[2016-12-05] MEDS: Dyna-Hex 2% Top Sol 8oz TOPIC SCH (21:56)
--- NOTE | 2016-12-05 22:41 | Wound Nurse Progress Note ---
Wound RN Progress Note Wound Consult Pt refused for wound assessment. Pt stated "I have stomachache, I don't want to be turned". will follow up with Pt tomorrow. ADILENE SILVA RN Dec 05, 2016 22:41
[2016-12-06] VITALS (11 sets, daily range): BP systolic 103–129; BP diastolic 60–86
[2016-12-06] MEDS: Sucralfate 1gm tab ORAL SCH ×3 (05:56→16:30)
[2016-12-06 07:24] LABS: BASOPHILS % (AUTO) 0.7 % (0.0-2.0); EOSINOPHILS % (AUTO) 2.1 % (0.0-3.0); LYMPHOCYTES % (AUTO) 13.8 % (20.0-45.0); MEAN CORPUSCULAR HEMOGLOBIN 29.6 PG (27.0-31.0); MEAN CORPUSCULAR HGB CONC 33.2 G/DL (32.0-36.0); MEAN CORPUSCULAR VOLUME 89 FL (80-99); MEAN PLATELET VOLUME 6.6 FL (6.5-10.1); MONOCYTES % (AUTO) 8.6 % (1.0-10.0); NEUTROPHILS % (AUTO) 74.8 % (45.0-75.0); PLATELET COUNT 116 K/UL (150-450); RED BLOOD COUNT 3.23 M/UL (4.70-6.10); RED CELL DISTRIBUTION WIDTH 13.6 % (11.6-14.8); WHITE BLOOD COUNT 4.8 K/UL (4.8-10.8)
[2016-12-06 07:56] LABS: INR 1.1 (0.9-1.1); PROTHROMBIN TIME 11.2 SEC (9.30-11.50)
[2016-12-06 08:01] LABS: ANION GAP 12 (5-15); CALCIUM 6.4 mg/dL (8.6-10.2); CARBON DIOXIDE 20 mEQ/L (20-30); CHLORIDE 110 mEQ/L (98-107); CREATININE 1.1 mg/dL (0.7-1.2); GLOMERULAR FILTRATION RATE > 60 mL/min (>60); HEMOLYSIS 5; POTASSIUM 3.7 mEQ/L (3.4-4.9); SODIUM 142 mEQ/L (135-145)
[2016-12-06] MEDS: Metoprolol 25mg tab ORAL SCH (08:08)
[2016-12-06] MEDS: Morphine Sulfate 2mg/ml Inj IVP PRN ×3 (08:17→20:04)
--- NOTE | 2016-12-06 09:01 | Pre-Procedure Note/Attestation ---
Pre-Procedure Note/Attestation Complete Prior to Procedure Planned Procedure: not applicable Procedure Narrative: egd/peg Indications for Procedure Pre-Operative Diagnosis: FTT Attestation I attest that I discussed the nature of the procedure; its benefits; risks and complications; and alternatives (and the risks and benefits of such alternatives ), prior to the procedure, with the patient (or the patient's legal major account representative). I attest that, if there was a reasonable possibility of needing a blood transfusion, the patient (or the patient's legal major account representative) was given the [facility] standardized written summary, pursuant to the [place] Blood Safety Act ([place] Health and Safety Code # 1645, as amended). I attest that I re-evaluated the patient just prior to the surgery and that there has been no change in the patient's H&P, except as documented below: SILVIA BLAKE Dec 06, 2016 09:01
[2016-12-06] MEDS ORDERED: NS 550ML IV ONE (09:20)
[2016-12-06] MEDS ORDERED: Lidocaine 1% MPF 10mg/ml 5ml ONE ×2 (09:30→12:30)
[2016-12-06] MEDS ORDERED: LR 1000ml ONE ×2 (09:30→12:30)
[2016-12-06] MEDS ORDERED: Propofol 10mg/ml 20ml IV ONE ×2 (09:30→12:30)
--- NOTE | 2016-12-06 09:44 | Endoscopy Procedure Note ---
Endoscopy Procedure Note Indication for Procedure: FTT Procedures Performed: EGD, PEG Operative Findings/Diagnosis: gastritis Specimen: none Pt Tolerated Procedure Well: Yes Estimated Blood Loss: none Anesthesiologist: mabel Anesthesia: MAC Implant(s) used?: No 50 yrs or older w/o bx or poly: Not Applicable 10yrs. F/U not recommended: Not Applicable SILVIA BLAKE Dec 06, 2016 09:44
--- NOTE | 2016-12-06 09:46 | Pulmonology Progress Note ---
Assessment/Plan Assessment/Plan IMPRESSION: 1. Poor oral intake 2. Tachycardia. 3. Anemia 4. C1-C4 quadriplegia. 5. Failure to thrive. 6. Chronic pain DISCUSSION: S/p G-tube placement. Continue home medications; DC back to sub-acute Discussed with the insurance. Subjective Interval Events: S/p PEG; doinmg well Constitutional: Reports: no symptoms HEENT: Repors: no symptoms Respiratory: Reports: no symptoms Cardiovascular: Reports: no symptoms Gastrointestinal/Abdominal: Reports: no symptoms Genitourinary: Reports: no symptoms Allergies: Coded Allergies: AMOXICILLIN (Verified Allergy, Unknown, 12/03/16) BACLOFEN (Verified Allergy, Unknown, 12/03/16) Objective Last 24 Hour Vital Signs Date Time Temp Pulse Resp B/P Pulse Ox O2 Delivery O2 Flow Rate FiO2 12/06/16 08:47 97.7 12/06/16 08:08 99 103/60 12/06/16 08:07 97.7 103 21 117/77 97 Trach Collar 12/06/16 08:06 Trach Collar 8.0 35 12/06/16 08:05 98 Trach Collar 8.0 35 12/06/16 04:00 98.1 99 20 103/60 96 Trach Collar 2.0 12/06/16 00:00 98.6 80 20 120/80 98 Trach Collar 13.0 35 12/05/16 21:00 72 110/80 12/05/16 20:00 97.5 72 22 110/80 97 Trach Collar 13.0 12/05/16 16:00 97.0 81 18 99/65 98 Trach Collar 10.0 35 12/05/16 12:41 Trach Collar 8.0 35 12/05/16 11:52 98.0 88 20 136/89 100 Trach Collar 10.0 Intake and Output 12/05/16 12/06/16 19:00 07:00 Intake Total 870 ml 825 ml Output Total 600 ml 550 ml Balance 270 ml 275 ml Intake Oral 120 ml IV Total 750 ml 825 ml Output Urine Total 600 ml 550 ml # Bowel Movements 1 1 General Appearance: no acute distress HEENT: normocephalic Respiratory/Chest: chest wall non-tender, lungs clear Cardiovascular: normal peripheral pulses, normal rate Abdomen: normal bowel sounds Microbiology Date/Time Source Procedure Growth Status 12/03/16 19:40 Wound Gram Stain - Final Resulted 12/03/16 19:40 Wound Culture - Preliminary Gram Negative Corby Resulted 12/03/16 15:00 Nasal Nares MRSA Culture - Final NO METHICILLIN RESISTANT STAPH AUREUS... Complete Laboratory Tests 12/06/16 06:00: White Blood Count 4.8, Red Blood Count 3.23L, Hemoglobin 9.5L, Hematocrit 28.8L , Mean Corpuscular Volume 89, Mean Corpuscular Hemoglobin 29.6, Mean Corpuscular Hemoglobin Concent 33.2, Red Cell Distribution Width 13.6, Platelet Count 116L, Mean Platelet Volume 6.6, Neutrophils (%) (Auto) 74.8, Lymphocytes ( %) (Auto) 13.8L, Monocytes (%) (Auto) 8.6, Eosinophils (%) (Auto) 2.1, Basophils (%) (Auto) 0.7, Prothrombin Time 11.2, Prothromb Time International Ratio 1.1, Sodium Level 142, Potassium Level 3.7, Chloride Level 110H, Carbon Dioxide Level 20, Anion Gap 12, Blood Urea Nitrogen 24H, Creatinine 1.1, Estimat Glomerular Filtration Rate > 60, Glucose Level 75, Calcium Level 6.4L Current Medications Medications (Trade) Dose Ordered Sig/Yazmin Route PRN Reason Start Time Stop Time Status Last Admin Dose Admin Chlorhexidine Gluconate (Melinda-Hex 2%) 1 applic QHS TOPIC 12/03/16 21:00 01/02/17 20:59 12/05/16 21:56 Clindamycin HCl/ Dextrose (Cleocin 600mg) 50 ml @ 100 mls/hr ONCE ONCE IV 12/06/16 10:00 12/06/16 10:29 Metoprolol Tartrate (Lopressor) 25 mg Q12HR ORAL 12/03/16 21:00 01/02/17 20:59 12/05/16 09:03 Morphine Sulfate 2 mg 2 mg Q4H PRN IVP For Pain 4-10 12/03/16 18:30 12/10/16 18:29 12/06/16 08:17 Ondansetron HCl (Zofran) 4 mg Q6H PRN IVP Nausea & Vomiting 12/03/16 16:30 01/02/17 16:29 12/06/16 08:17 Pantoprazole (Protonix) 40 mg EVERY 12 HOURS ORAL 12/03/16 21:00 01/02/17 20:59 12/06/16 08:17 Prochlorperazine (Compazine) 10 mg Q6H PRN IVP Nausea & Vomiting 12/03/16 16:30 01/02/17 16:29 12/04/16 15:39 Sodium Chloride (Sodium Chloride 1000ml bag) 1,000 ml @ 75 mls/hr [id number] IV 12/03/16 17:00 01/02/17 16:59 12/05/16 16:39 Sucralfate (Carafate) 1 gm AC+HS ORAL 12/03/16 21:00 01/02/17 20:59 12/06/16 05:56 Carlos Alberto Oneal MD Dec 06, 2016 09:46
--- NOTE | 2016-12-06 09:54 | Immediate Post-Op Evaluation ---
Immediate Post-Op Evalulation Immediate Post-Op Evalulation Procedure: EGD/PEG Date of Evaluation: Dec 06, 2016 Time of Evaluation: 09:54 IV Fluids: 300 Blood Pressure Systolic: 110 Blood Pressure Diastolic: 81 Pulse Rate: 100 Respiratory Rate: 14 O2 Sat by Pulse Oximetry: 100 Temperature (Fahrenheit): 97.9 Nausea: No Vomiting: No Patient Status: awake, reacts, patent Hydration Status: adequate Drug: clindamycin Given Within 1 Hr of Incision: Yes Time Given: 09:20 HARDEEP SCOTT CRNA Dec 06, 2016 09:54
[2016-12-06] MEDS ORDERED: Clindamycin 600mg 50 ML IV ONE (10:00)
--- NOTE | 2016-12-06 10:00 | Anethesia Preoperative Eval ---
Anesthesia Pre-op PMH/ROS General Date of Evaluation: Dec 06, 2016 Time of Evaluation: 09:30 Anesthesiologist: winter ASA Score: ASA 3 Mallampati Score Class I : Soft palate, uvula, fauces, pillars visible Class II: Soft palate, uvula, fauces visible Class III: Soft palate, base of uvula visible Class IV: Only hard plate visible Mallampati Classification: Class III Surgeon: fouzia Diagnosis: poor oral intake Surgical Procedure: PEG placement Anesthesia History: none Family History: no anesthesia problems Allergies: Coded Allergies: AMOXICILLIN (Verified Allergy, Unknown, 12/03/16) BACLOFEN (Verified Allergy, Unknown, 12/03/16) Medications: see eMAR Past Medical History Cardiovascular: Reports: HTN Pulmonary: Reports: other - pleural effusion; in situ tracheostomy Gastrointestinal/Genitourinary: Denies: CRI, ESRD, GERD, other Neurologic/Psychiatric: Reports: other HEENT: Denies: [place] (L), [place] (R), cataract (L), cataract (R), glaucoma, other Hematology/Immune: Denies: DVT, anemia, bleeding disorder, other Musculoskeletal/Integumentary: Reports: other - c1-4 quad, Denies: DDD, DJD, OA, RA, edema PMH Narrative: This is a 41-year-old male with a history of C1-C4 quadriplegia, previous pressure ulcerations especially of the sacral region and a tracheostomy, who is a resident of [facility] in [place]. He was sent in because of complaints of poor oral intake. The patient states that he has been nauseous every time he tries to eat. PSxH Narrative: multiple surgeries; colostomy Anesthesia Pre-op Phys. Exam Physician Exam Last Vital Signs Date Time Temp Pulse Resp B/P Pulse Ox O2 Delivery O2 Flow Rate FiO2 12/06/16 08:47 97.7 12/06/16 08:08 99 103/60 12/06/16 08:07 21 97 Trach Collar 12/06/16 08:06 8.0 35 Constitutional: NAD Neurologic: CN 2-12 intact Cardiovascular: RRR Respiratory: other - trach colloar Gastrointestinal: S/NT/ND Airway Exam Mallampati Score: Class III MO: limited ROM: limited Teeth: missing Dentures: no lower, no upper Anesthesia Pre-op A/P Labs Hematology Test 12/06/16 06:00 White Blood Count 4.8 K/UL (4.8-10.8) Red Blood Count 3.23 M/UL (4.70-6.10) L Hemoglobin 9.5 G/DL (14.2-18.0) L Hematocrit 28.8 % (42.0-52.0) L Mean Corpuscular Volume 89 FL (80-99) Mean Corpuscular Hemoglobin 29.6 PG (27.0-31.0) Mean Corpuscular Hemoglobin Concent 33.2 G/DL (32.0-36.0) Red Cell Distribution Width 13.6 % (11.6-14.8) Platelet Count 116 K/UL (150-450) L Mean Platelet Volume 6.6 FL (6.5-10.1) Neutrophils (%) (Auto) 74.8 % (45.0-75.0) Lymphocytes (%) (Auto) 13.8 % (20.0-45.0) L Monocytes (%) (Auto) 8.6 % (1.0-10.0) Eosinophils (%) (Auto) 2.1 % (0.0-3.0) Basophils (%) (Auto) 0.7 % (0.0-2.0) Coagulation Test 12/06/16 06:00 Prothrombin Time 11.2 SEC (9.30-11.50) Prothromb Time International Ratio 1.1 (0.9-1.1) Chemistry Test 12/06/16 06:00 Sodium Level 142 mEQ/L (135-145) Potassium Level 3.7 mEQ/L (3.4-4.9) Chloride Level 110 mEQ/L (98-107) H Carbon Dioxide Level 20 mEQ/L (20-30) Anion Gap 12 (5-15) Blood Urea Nitrogen 24 mg/dL (7-23) H Creatinine 1.1 mg/dL (0.7-1.2) Estimat Glomerular Filtration Rate > 60 mL/min (>60) Glucose Level 75 mg/dL (74-106) Calcium Level 6.4 mg/dL (8.6-10.2) L Studies Pre-op Studies: EKG - st Risk Assessment & Plan Assessment: able to give consent; verbally communicative via trach Plan: mac Status Change Before Surgery: No Pre-Antibiotics Drug: clindymicin Given Within 1 Hr of Incision: Yes Time Given: 09:20 HARDEEP SCOTT CRNA Dec 06, 2016 10:00
--- NOTE | 2016-12-06 11:17 | 48 Hour Post Anesthesia Eval ---
Post Anesthesia Evaluation Procedure: EGD/PEG Date of Evaluation: Dec 06, 2016 Time of Evaluation: 11:16 Blood Pressure Systolic: 110 0: 81 Pulse Rate: 100 Respiratory Rate: 14 O2 Sat by Pulse Oximetry: 99 Airway: other - via tracheostomy 40% O2 Hydration Status: adequate Cardiopulmonary Status: stable Mental Status/LOC: patient returned to baseline Post-Anesthesia Complications: none Follow-up care needed: N/A HARDEEP SCOTT CRNA Dec 06, 2016 11:17
--- NOTE | 2016-12-06 12:01 | Procedure Note ---
DATE OF PROCEDURE: 12/03/2016 SURGEON: Pascual Escamilla M.D. PROCEDURE: Upper endoscopy with PEG placement. ANESTHESIA: Per MAT WORKER, Jumana Calzada. INSTRUMENT: Olympus adult flexible upper endoscope and colonoscope. INDICATION: Dysphagia. REASON FOR PROCEDURE: The procedure, risks, benefits, and possible consequences, including hemorrhage, aspiration, perforation and infection, and alternative treatments, were explained to the patient/legal guardian by Dr. Pascual Escamilla and the patient/legal guardian understood and accepted these risks. DESCRIPTION OF PROCEDURE: After informed consent was obtained and the patient was adequately sedated, Olympus upper endoscope was advanced from mouth into the second portion of duodenum and retroflexion was performed in the stomach. Then under endoscopic guidance and under sterile condition, a 20-Mongolian pull type of G-tube was placed in the epigastric area. The distance from the tip of the tube to the skin was about 2.5 cm in size. The patient tolerated the procedure without any complication. SUMMARY OF FINDINGS: Status post successful PEG placement. RECOMMENDATIONS: 1. Abdominal binder. 2. Elevate the head of the bed at times. 3. G-tube flush. 4. G-tube care. 5. The patient received dose of antibiotics prior to the procedure. 6. Plan to start tube feeding later today. I want to thank, Dr. Oneal, for this kind referral. Pascual Escamilla M.D. DR: MARYCRUZ JOB#: [id number] CC:
[2016-12-06] MEDS ORDERED: Esmolol 100mg/10ml Inj ONE (12:30)
--- NOTE | 2016-12-06 16:11 | Wound Care Consultation ---
Wound Assessment Wound Assessment #1: Wound Number: #1 Wound Present on Admission: Yes New Wound: No Status Change of Wound: No Wound Location Body Site: sacral - extending to right trochanter, extending to right ischial tuberosity , noted wounds scattered to this area but close in proxmity. Wound Type: pressure ulcer Justin Test: Does not Justin Pressure Ulcer Stage: IV/unstageable Wound Thickness: Full Thickness Wound Length: 28.0 Wound Width: 28.0 Wound Depth: utd Percent of Wound Peetz/Red: 50 Percent of Wound Bed Yellow/Wh: 50 Wound Drainage Description: Serosanguineous Wound Drainage Amount: Copious Wound Drainage Odor: None/Absent Tissue Surrounding Wound: Macerated Wound General Appearance: Reddened, Bleeding - minimal., Draining, Necrotic , Muscle Visible Wound Assessment #2: Wound Number: #2 Wound Present on Admission: Yes New Wound: No Status Change of Wound: No Wound Location Body Site Modif: left Wound Location Body Site: ischial tuberosity Wound Type: pressure ulcer Justin Test: Does not Justin Pressure Ulcer Stage: IV/unstageable Wound Thickness: Full Thickness Wound Length: 7.5 Wound Width: 7.5 Wound Depth: utd Percent of Wound Peetz/Red: 30 Percent of Wound Bed Yellow/Wh: 60 Percent of Wound Purple/Maroon: 10 Wound Drainage Description: Serosanguineous Wound Drainage Amount: Copious Wound Drainage Odor: None/Absent Tissue Surrounding Wound: Macerated Wound General Appearance: Reddened, Bleeding - minimal, Draining, Necrotic, Muscle Visible Wound Assessment #3: Wound Number: #3 Wound Present on Admission: Yes New Wound: No Status Change of Wound: No Wound Location Body Site Modif: left Wound Location Body Site: trochanter Wound Type: scar Justin Test: Does not Justin Wound Thickness: Full Thickness Wound Length: 10.0 Wound Width: 6.0 Wound Depth: utd Percent of Wound Peetz/Red: 100 Wound Drainage Amount: None Wound Drainage Odor: None/Absent Tissue Surrounding Wound: Intact Wound General Appearance: Open to air, Clean/Dry Wound Comment #1. Sacral - extending to right trochanter, extending to right ischial tuberosity pressure ulcer stage IV/UNSTAGEABLE. , noted wounds scattered to this area but close in proxmity. #2 Left ischial tuberosity pressure ulcer stage IV/Unstageable. #3 Left trochanter full thickness scar tissue. Recommendation. - Local wound care as ordered. - Apply low air loss mattress for skin and wound management. -Keep clean and dry. -Optimize nutrition. -Offload affected sites. -Avoid shear and friction. -Turn and reposition. - Assess and notify MD for any further changes of condition to skin noted. LARRY MUNIZ Dec 06, 2016 16:10
--- NOTE | 2016-12-06 16:27 | Wound Nurse Progress Note ---
Wound RN Progress Note Wound Consult followed up for wound consult to assess admitted wounds. pain medication was given per nurse prior to assessment. asked patient if i was able to assess skin after pain medication took effect stated"yes". returned to room to assess skin , noted large wounds to sacral extending to right trochanter and right ischial tuberosity , left ischial tuberosity. patient refused for head of bed to be placed down for proper skin wound assessment. explained purpose of placing head of bed down refused states " you can do it they do it like this at home,your not strong". pictures and wound assessment done to the best of my ability. wound care provided sites remain clean and dry with intact dry dressings, no c/ o pain during assessment and wound care being provided. with wire galvanizer assistance patient was cleansed,provided hygiene care and was repositioned to offload affected sites. head of bed remains up ,left safe in bed. LARRY MUNIZ Dec 06, 2016 16:27
--- NOTE | 2016-12-07 11:10 | Discharge Summary ---
Discharge Summary Hospital Course Date of Admission Dec 03, 2016 at 11:20 Date of Discharge Dec 06, 2016 at 20:30 Admitting Diagnosis abdominal pain HPI Rishabh Salvador is a 41 year old male who was admitted on Dec 03, 2016 at 11: 20 for Abdominal Pain Hospital Course dc summary #[id number] Discharge Medications Continued Medications: Acetaminophen 160MG/5ML* (Acetaminophen*) 160 Mg/5 Ml Elixir 20 ML ORAL THREE TIMES A DAY PRN for Fever/Headache/Mild Pain, ML Albuterol Sulfate* (Albuterol Sulfate Hhn*) 2.5 Mg/3 Ml Vial.neb 3 ML INH Q4H PRN for Shortness of Breath, EA Ascorbic Acid* (Vitamin C*) 500 Mg Tablet 500 MG ORAL DAILY, #30 TAB 0 Refills Dextran 70/Hypromellose (Artificial Tears Eye Drops*) 15 Ml Drops 1 DROP BOTH EYES BID, #15 ML 0 Refills Duloxetine Hcl* (Cymbalta*) 60 Mg Capsule.dr 60 MG ORAL DAILY, CAP Famotidine (Famotidine) 20 Mg Tablet 20 MG GT TWICE A DAY, #60 TAB 0 Refills Gabapentin* (Gabapentin*) 300 Mg Capsule 300 MG GT BEDTIME, CAP Hydrocodone/Acetaminophen 5-325* (Hydrocodone/Acetaminophen 5-325*) 1 Each Tablet Unknown Dose ORAL Q4H PRN for For Pain, #30 TAB 0 Refills Ipratropium [place] 0.5MG/2.5ML (Ipratropium [place] 0.5MG/2.5ML) 0.2 Mg/1 Ml Solution 0.5 MG HHN Q6H PRN for Shortness of Breath, #28 EA Lorazepam* (Lorazepam*) 2 Mg Tablet 2 MG ORAL THREE TIMES A DAY PRN for For Anxiety, TAB Magnesium Hydroxide* (Milk Of Magnesia*) 400 Mg/5 Ml Oral.susp 30 ML ORAL DAILY, ML Meropenem (Meropenem) 1 Gm Vial 1 GM IV Q12HR for 10 Days, VIAL Metoprolol Tartrate* (Metoprolol Tartrate*) 25 Mg Tablet 25 MG ORAL EVERY 12 HOURS PRN for For High Blood Pressure, TAB Multivitamin Liquid* (Multi-Delyn*) 237 Ml Liquid 5 ML GT DAILY, ML Ondansetron* (Zofran*) 4 Mg Tablet 4 MG ORAL Q6H PRN for Nausea & Vomiting, TAB Oxybutynin Chloride (Oxybutynin Chloride) 5 Mg Tablet 5 MG ORAL BID, #30 TAB 0 Refills Pantoprazole* (Pantoprazole*) 40 Mg Tablet.dr 40 MG ORAL EVERY 12 HOURS, TAB Prochlorperazine Maleate* (Compazine*) 5 Mg Tablet 10 MG ORAL Q6H PRN for Nausea & Vomiting, TAB 0 Refills Quetiapine Fumarate* (Seroquel*) 100 Mg Tablet 100 MG ORAL TWICE A DAY, TAB Sodium Hypochlorite (Anasept) 86 Gm Gel..gram. Unknown Dose TP, GM Sucralfate* (Carafate*) 1 Gm Tablet 1 GM ORAL AC+HS, TAB Zinc Sulfate (Zinc Sulfate*) 220 Mg Capsule 220 MG GT DAILY, CAP 0 Refills [Chlorhexedine 0.12%] () 15 ML PO TWICE A DAY Discharge Condition Upon Discharge: stable Discharge Disposition Patient was discharged to long term facility Discharge Diagnoses: Discharge Instructions Discharge Instructions Special Instructions I have been assigned to complete a D/C Summary on this account. I was not involved in the patient management Marlena Nagy NP ([place]) Dec 07, 2016 11:10
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
[2016-12-08 10:31] LABS: OTHERS PATHOLOGIST COMMENT
== END 2016-12-06 20:30 | DRG 254 ==
LOC: EDBD 10:30 → EMR 11:05 → 4E 11:20 → EDBEDREQ 12:31 → 4E 12-05 16:31
PROC: 0DH63UZ Insertion of Feeding Device into Stomach, Percutaneous Approach (ICD-10-PCS; principal; 2016-12-03)
PROC: 30233N1 Transfusion of Nonautologous Red Blood Cells into Peripheral Vein, Percutaneous Approach (ICD-10-PCS; 2016-12-04)
DX: R13.10 Dysphagia, unspecified (principal); G82.50 Quadriplegia, unspecified; L89.154 Pressure ulcer of sacral region, stage 4; L89.324 Pressure ulcer of left buttock, stage 4; J96.10 Chronic respiratory failure, unspecified whether with hypoxia or hypercapnia; E86.0 Dehydration; K29.70 Gastritis, unspecified, without bleeding; Z43.0 Encounter for attention to tracheostomy; R62.7 Adult failure to thrive; S14.15 Other incomplete lesions of cervical spinal cord; E88.09 Other disorders of plasma-protein metabolism, not elsewhere classified; I10 Essential (primary) hypertension; Z88.1 Allergy status to other antibiotic agents; Z88.8 Allergy status to other drugs, medicaments and biological substances; R00.0 Tachycardia, unspecified; G89.29 Other chronic pain; W34.00XS Accidental discharge from unspecified firearms or gun, sequela; R10.9 Unspecified abdominal pain; D64.9 Anemia, unspecified; D63.8 Anemia in other chronic diseases classified elsewhere; B96.4 Proteus (mirabilis) (morganii) as the cause of diseases classified elsewhere; Z43.3 Encounter for attention to colostomy
CPT/HCPCS: 36415; 71010; 74000; 80048; 80053; 81003; 82270; 82378; 82607; 82728; 82746; 83540; 83550; 83690; 84439; 84443; 85007; 85025; 85044; 85610; 85730; 86850; 86900; 86901; 86920; 87070; 87081; 87181; 87205; 94003; 94150; 94760; J2405; S0077